=== PATIENT | female | born 1965 | race American Indian/Alaskan Native ===

== ENCOUNTER → 2017-09-27 | Outpatient (CLI) | payer MEDICARE | LOC: SLR 11:00 | PROVIDERS: ATTEND Specialist | DX: G47.30 Sleep apnea, unspecified (principal); I10 Essential (primary) hypertension; R01.1 Cardiac murmur, unspecified | CPT/HCPCS: 95810 ==

== ENCOUNTER 2017-10-25 11:00 | Outpatient (CLI) | payer MEDICARE | END 2017-10-25 11:01 | disposition home or self-care (01) | LOC: SLR 11:00 | PROVIDERS: ATTEND Otolaryngology | DX: G47.33 Obstructive sleep apnea (adult) (pediatric) (principal); I10 Essential (primary) hypertension | CPT/HCPCS: 95811 ==

== ENCOUNTER 2019-01-31 10:15 | Inpatient (IN) | payer MEDICARE ==
[2019-02-14] MEDS ORDERED: REGLAN IV PRN (06:06)
[2019-02-14] MEDS ORDERED: ZOFRAN IV PRN (06:06)
[2019-02-14] MEDS ORDERED: APRESOLINE IV PRN (06:06)
[2019-02-14] MEDS ORDERED: DILAUDID IV PRN (06:06)
[2019-02-14] MEDS ORDERED: ANCEF/STERILE WATER 2 GM/20 ML 2 GM/20 ML SYRINGE IV NR (07:00)
[2019-02-14] MEDS ORDERED: FLAGYL 500 MG/100 ML 500 MG/100 ML BAG IV NR (07:00)
[2019-02-14] MEDS ORDERED: LOVENOX SUB-Q NR (07:00)
--- NOTE | 2019-02-14 08:22 | Anesthesia Consultation ---
Anesthesia Consult and Med Hx Date of service: 02/14/19 - Airway Anesthetic Teeth Evaluation: Good ROM Head & Neck: Adequate Mental/Hyoid Distance: Adequate Mallampati Class: Class II Intubation Access Assessment: Probably Good - Pulmonary Exam CTA: Yes - Cardiac Exam Cardiac Exam: RRR - Pre-Operative Health Status ASA Pre-Surgery Classification: ASA3 Proposed Anesthetic Plan: General - Pulmonary Hx Smoking: No Hx Asthma: Yes (last episode 2 weeks ago) Hx Respiratory Symptoms: No SOB: Yes (due to weight) COPD: No Hx Sleep Apnea: Yes - Cardiovascular System Hx Hypertension: Yes (took amlodipine this morning ) Hx Coronary Artery Disease: No Hx Heart Attack/AMI: No Hx Cardia Arrhythmia: Yes (" heart rate will drop sometimes due to Anay's") Hx Pacemaker: No Hx Valvular Heart Disease: No Hx Peripheral Vascular Disease: No - Central Nervous System Hx Neuromuscular Disorder: No Hx Seizures: No CVA: No Hx Psychiatric Problems: No - Gastrointestinal Hx Ulcer: No Hx Gastroesophageal Reflux Disease: Yes - Endocrine Hx Renal Disease: No Hx Cirrhosis: No Hx Liver Disease: Yes (Fatty liver) Hx Insulin Dependent Diabetes: No Hx Non-Insulin Dependent Diabetes: Yes Hx Thyroid Disease: Yes Hx Hypothyroidism: Yes (s/p thyroidectomy, h/o Anay's ) Hx Hyperthyroidism: No - Hematic Hx Anemia: No Hx Sickle Cell Disease: No - Other Systems Hx Alcohol Use: No Hx Obesity: Yes (BMI 58.9) - Additional Comments Anesthesia Medical History Comments: No GAC, No FHAC
--- NOTE | 2019-02-14 08:23 | Anesthesia Day of Surgery ---
Anesthesia Day of Surgery - Day of Surgery Patient Examined: Yes Patient H&P Reviewed: Yes Patient is NPO: Yes Beta Blockers: Yes (took carvedilol this morning ) Cardiac Clearance: No Pulmonary Clearance: No
[2019-02-14 08:56] LABS: Bilirubin,Urine NEG (Negative); Blood,Urine NEG (Negative); Color,Urine Yellow (Yellow); Mucus,Urine FEW /HPF; Protein,Urine <15 mg/dL mg/dL (Negative); Urobilinogen,Urine < 2.0 mg/dL (<2.0)
[2019-02-14] MEDS ORDERED: TRANSDERM-SCOP TD SCH (09:00)
[2019-02-14] MEDS: LACTATED RINGERS 1,000 ML IV SCH ×2 (09:00→23:27)
[2019-02-14] MEDS ORDERED: SUBLIMAZE IV PRN (09:21)
[2019-02-14] MEDS ORDERED: ZEMURON IV ONE (09:36)
[2019-02-14] MEDS ORDERED: XYLOCAINE MPF 2% ONE (09:36)
[2019-02-14] MEDS ORDERED: DIPRIVAN 10 MG/ML IV ONE (09:39)
[2019-02-14] MEDS ORDERED: MARCAINE 0.5% INFILTRATI ONE (09:41)
[2019-02-14] MEDS ORDERED: MARCAINE-EPI 0.5%-1:200,000 INFILTRATI ONE ×2 (09:41→10:47)
[2019-02-14] MEDS ORDERED: XYLOCAINE 1% 20 mL ONE (09:41)
[2019-02-14] MEDS ORDERED: XYLOCAINE 1% 20 mL INFILTRATI ONE (10:47)
[2019-02-14] MEDS ORDERED: NACL 0.9% IR ONE ×2 (10:48→10:57)
[2019-02-14] MEDS ORDERED: DECADRON ONE (10:59)
[2019-02-14] MEDS ORDERED: ZOFRAN ONE (10:59)
[2019-02-14] MEDS ORDERED: ROBINUL ONE (11:25)
[2019-02-14] MEDS ORDERED: BLOXIVERZ ONE (11:44)
[2019-02-14] MEDS ORDERED: QUELICIN ONE (11:47)
--- NOTE | 2019-02-14 13:56 | Post Anesthesia Evaluation ---
- Post Anesthesia Evaluation Patient Participated: Yes Airway Patent: Yes Stable Respiratory Function: Yes Nausea/Vomiting: No Temp > 96.8F: Yes Pain Manageable: Yes Adequeate Hydration: Yes Anesthesia Complications: No
[2019-02-14] MEDS: MORPHINE IV PRN ×2 (15:14→23:28)
[2019-02-14] MEDS: MYLICON PO PRN (16:52)
[2019-02-14] MEDS: NORCO PO PRN (19:42)
[2019-02-14 21:12] VITALS: BP 147/78
[2019-02-15 05:43] LABS: Basophils # (Auto) 0.1 K/mm3 (0.0-0.1); Basophils % (Auto) 0.6 % (0.0-1.8); Eosinophils % (Auto) 0.2 % (0.0-4.3); Hemoglobin 12.3 gm/dl (10.1-14.3); Lymphocytes # (Auto) 1.2 K/mm3 (1.2-5.4); Lymphocytes % (Auto) 7.9 % (13.4-35.0); Mean Corpuscular HGB Conc 31 % (30-34); Mean Corpuscular Volume 76 fl (79-97); Monocytes # (Auto) 1.7 K/mm3 (0.0-0.8); Monocytes % (Auto) 11.1 % (0.0-7.3); Platelet Count 253 K/mm3 (140-440); Red Blood Count 5.14 M/mm3 (3.65-5.03); Red Cell Distribution Width 16.6 % (13.2-15.2)
[2019-02-15 06:01] LABS: BUN/Creatinine Ratio 12; Blood Urea Nitrogen 6 mg/dL (7-17); Calcium 8.7 mg/dL (8.4-10.2); Hemolysis Index 36
[2019-02-15] MEDS: NORCO PO PRN ×2 (06:05→14:44)
[2019-02-15] MEDS: MYLICON PO PRN (06:08)
--- NOTE | 2019-02-15 07:07 | Discharge Summary ---
Providers - Providers Date of Admission: 02/14/19 06:36 Date of discharge: 02/15/19 Attending physician: CHERELLE MOON Primary care physician: CALEB DYSON Hospitalization Reason for admission: postop Condition: Good Procedures: 02/14/19: Laparoscopic sleeve gastrectomy Hospital course: 53F admitted after her operation for routine postop care. She was managed in the IM due to bed availability. She had no major issues, tolerated a CLD with mild nausea, ambulated, and was dc home POD1. Disposition: DC-01 TO HOME OR SELFCARE Core Measure Documentation - Palliative Care Palliative Care/ Comfort Measures: Not Applicable - Core Measures Any of the following diagnoses?: none - VTE Discharge Requirements Deep Vein Thrombosis/Pulmonary Embolism Present on Admission: No - Acute MO Discharge Requirements Aspirin at discharge: No Reason for no aspirin on DC: Surgical contraindication - Heart Failure Discharge Requirements SAURAV/ARB for LVSD if EF <40%: Not Applicable - Stroke Discharge Requirements Statin for LDL = or >70 mg/dl on DC: Not Applicable Exam - Physical Exam Narrative exam: Gen: AAO, NAD Heart: RRR Lungs: CTAB Abd: MO, soft, ND, NT. Bandages c/d/i. - Constitutional Vitals: Temp Pulse Resp BP Pulse Ox 98.0 F 88 22 147/78 99 02/15/19 04:00 02/14/19 19:45 02/14/19 23:28 02/14/19 19:45 02/14/19 20:03 Plan Diet: clear liquids Wound: keep clean and dry Special Instructions: no heavy lifting Additional Instructions: Jignesh Moon as scheduled Follow up with: CALEB DYSON MD [Primary Care Provider] - 7 Days
[2019-02-15] MEDS ORDERED: LOVENOX SUB-Q SCH (10:00)
== END 2019-02-15 17:43 | disposition home health service (06) | DRG 620 ==
LOC: 3A 02-14 06:36 → IMCU 02-14 19:44
PROVIDERS: ADMIT Specialist; ATTEND Specialist
PROC: 0DB64Z3 Excision of Stomach, Percutaneous Endoscopic Approach, Vertical (ICD-10-PCS; principal; 2019-02-14)
PROC: 0BQT4ZZ Repair Diaphragm, Percutaneous Endoscopic Approach (ICD-10-PCS; 2019-02-14)
DX: E66.01 Morbid (severe) obesity due to excess calories (principal); R65.10 Systemic inflammatory response syndrome (SIRS) of non-infectious origin without acute organ dysfunction; J45.909 Unspecified asthma, uncomplicated; I10 Essential (primary) hypertension; K21.9 Gastro-esophageal reflux disease without esophagitis; K76.0 Fatty (change of) liver, not elsewhere classified; K44.9 Diaphragmatic hernia without obstruction or gangrene; E11.9 Type 2 diabetes mellitus without complications; E03.9 Hypothyroidism, unspecified; Z68.43 Body mass index [BMI] 50.0-59.9, adult
CPT/HCPCS: 36415; 80048; 81001; 81025; 82962; 85025; 88307; 94760; G0378; A4217; J0330; J0690; J1100; J1170; J1650; J2270; J2405; J2704; J2710; J3010; J7120